=== PATIENT | male | born 1965 | race Caucasian/White ===

== ENCOUNTER 2023-05-20 10:48 | Emergency (ER) | payer BC, MEDICAID ==
[~2023-05-20] VITALS: Ht 180.3 cm; Wt 97.5 kg
[2023-05-20] MEDS ORDERED: ONDANSETRON HCL/PF 4 MG/2 ML VIAL IVP ONE (11:30)
[2023-05-20] MEDS ORDERED: FAMOTIDINE/PF INJ 20 MG/2 ML VIAL IV ONE ×2 (11:30→11:36)
[2023-05-20] MEDS ORDERED: IV NS 0.9% 1,000 ML BAG IV ONE (11:30)
[2023-05-20 11:33] LABS: APPEARANCE,URINE CLEAR (CLEAR); BILIRUBIN,URINE NEGATIVE (NEGATIVE); BLOOD, URINE NEGATIVE Ery/uL (NEGATIVE); COLOR,URINE YELLOW (YELLOW); KETONES,URINE NEGATIVE (NEGATIVE); LEUKOCYTE ESTERASE ,URINE NEGATIVE (NEGATIVE); NITRITE, URINE NEGATIVE (NEGATIVE); PH,URINE 6.5 (5.0-8.0); PROTEIN,URINE NEGATIVE (NEGATIVE); UGLUCOSE NEGATIVE (NEGATIVE); UROBILINOGEN,URINE 0.2 EU/dL (0.2)
[2023-05-20 11:35] LABS: BASOPHILS % (AUTO) 0.6 % (0.0-2.0); EOSINOPHILS # (AUTO) 0.3 K/uL (0.0-0.7); EOSINOPHILS % (AUTO) 3.7 % (0.0-6.0); HEMATOCRIT 49 % (39-51); HEMOGLOBIN 16.6 g/dL (13.5-17.5); LYMPHOCYTES # (AUTO) 1.4 K/uL (0.8-4.8); LYMPHOCYTES % (AUTO) 17.7 % (20.0-44.0); MEAN CORPUSCULAR HEMOGLOBIN 36 PG (26.0-33.0); MEAN CORPUSCULAR HGB CONC 34 g/dl (31.0-36.0); MEAN CORPUSCULAR VOLUME 106 fL (80-96); MONOCYTES # (AUTO) 0.8 K/uL (0.1-1.30); MONOCYTES % (AUTO) 9.3 % (2.0-12.0); NEUTROPHILS # (AUTO) 5.6 K/uL (1.8-8.9); NEUTROPHILS % (AUTO) 68.7 % (43.0-81.0); PLATELET COUNT (AUTO) 148 K/uL (150-450); RED BLOOD CELL COUNT(AUTO) 4.59 MIL/uL (4.5-6.0); RED CELL DISTRIBUTION WIDTH 12.6 % (11.5-15.0); WHITE BLOOD COUNT (AUTO) 8.2 K/uL (4.3-11.0)
[2023-05-20] MEDS ORDERED: ONDANSETRON HCL/PF 4 MG/2 ML VIAL ONE (11:36)
[2023-05-20 11:44] LABS: CARBON DIOXIDE 27 mmol/L (21-32); CHLORIDE 107 mmol/L (98-107); CREATININE 0.8 mg/dL (0.6-1.3); GLUCOSE 119 mg/dL (74-106); POTASSIUM 4.4 mmol/L (3.5-5.1); SODIUM SERUM 139 mmol/L (136-145); UREA NITROGEN, BLOOD 9 mg/dL (7-18)
[2023-05-20 11:51] LABS: ALANINE AMINOTRANSFERASE 43 U/L (12-78); ALBUMIN 3.7 g/dL (3.4-5.0); ALKALINE PHOSPHATASE 73 U/L (46-116); ASPARTATE AMINOTRANSFERASE 27 U/L (15-37); BILIRUBIN,DIRECT 0.2 mg/dL (0.0-0.2); BILIRUBIN,TOTAL 0.8 mg/dL (0.2-1.0); LIPASE 40 U/L (16-77); TOTAL PROTEIN, SERUM 7.5 g/dL (6.4-8.2)
[2023-05-20] MEDS ORDERED: CIPROFLOXACIN HCL 500 MG TABLET PO ONE (12:30)
[2023-05-20] MEDS ORDERED: KETOROLAC TROMETHAMINE INJ 30 MG/ML VIAL IV ONE (12:30)
[2023-05-20] MEDS ORDERED: CIPROFLOXACIN HCL 500 MG TABLET ONE (12:35)
[2023-05-20] MEDS ORDERED: CIPR-262 PO ×2 (13:13→13:27)
[2023-05-20 15:17] VITALS: BP 134/73; TEMP 98.1; O2SAT 98
== END 2023-05-20 15:18 | disposition home or self-care (01) ==
LOC: ER 10:48
DX: N39.0 Urinary tract infection, site not specified (principal); E03.9 Hypothyroidism, unspecified
CPT/HCPCS: 36415; 71045-TC; 80048-TC; 80076-TC; 83690-TC; 84484-TC; 85025-TC; 87086-TC; J2405; J3490

== ENCOUNTER 2023-07-04 13:02 | Emergency (ER) | payer MEDICAID ==
[~2023-07-04] VITALS: Ht 180.3 cm; Wt 88.5 kg
[~2023-07-04 13:02] MED LIST: CIPR-262 PO
[2023-07-04] MEDS ORDERED: MAG HYDROX/AL HYDROX/SIMETH 30 ML UDC ONE (13:28)
[2023-07-04] MEDS ORDERED: LIDOCAINE VISCOUS 2% UD 15 ML UDC ONE (13:29)
[2023-07-04] MEDS ORDERED: MAG HYDROX/AL HYDROX/SIMETH 30 ML UDC PO ONE (13:30)
[2023-07-04] MEDS ORDERED: LIDOCAINE VISCOUS 2% UD 15 ML UDC MM ONE (13:30)
[2023-07-04] MEDS ORDERED: SUCR1TAB PO (14:48)
[2023-07-04] MEDS ORDERED: PANT40TA2 PO (14:48)
[2023-07-04 14:58] VITALS: BP 135/70; TEMP 98.1; O2SAT 98
== END 2023-07-04 14:56 | disposition home or self-care (01) ==
LOC: ER 13:02
DX: R09.A2 Foreign body sensation, throat (principal); R94.31 Abnormal electrocardiogram [ECG] [EKG]; M54.2 Cervicalgia; E03.9 Hypothyroidism, unspecified
CPT/HCPCS: 70490-TC; 71045-TC